=== PATIENT | male | born 1950 | race Two or more races ===

== ENCOUNTER 2016-12-22 15:31 | Inpatient (IN) | payer OTHER ==
[~2016-12-22] VITALS: Ht 170.2 cm; Wt 75.3 kg
--- NOTE | 2016-12-22 18:43 | NUR ---
PT STATING SORETHROAT FOR 3 DAYS WITH INTERMITTENT FEVER. PT IS ALERT AND ORIENTED, FAMILY AT BEDSIDE AND BREATHING IS UNLABORED AND EVEN.
[2016-12-22 20:02] LABS: PLATELET COUNT 312 x10^3mcL (130-400); RED CELL DISTRIBUTION WIDTH 13.6 % (11.5-14.5)
[2016-12-22 20:05] LABS: CALCIUM 9.3 mg/dL (8.5-10.1); CARBON DIOXIDE 15.6 mmol/L (21-32); CREATININE SERUM 1.6 mg/dL (0.7-1.3); POTASSIUM SERUM 4.9 mmol/L (3.5-5.1)
[2016-12-22 20:10] LABS: ALBUMIN 3.5 g/dL (3.4-5.0); BILIRUBIN TOTAL 0.9 mg/dL (0.20-1.00)
[2016-12-22 20:11] LABS: TOTAL PROTEIN, SERUM 8.6 g/dL (6.4-8.2)
--- NOTE | 2016-12-22 20:15 | NUR ---
PT SITTING IN BED, IN POSITION OF COMFORT. C/O PAIN 10/10 TO THROAT. RESPIRATIONS EVEN AND UNLABORED. NO ACUTE DISTRESS NOTED. BED IN LOW POSITION. CALL LIGHT WITHIN REACH.
--- NOTE | 2016-12-22 20:29 | NUR ---
GLIDESCOPE, DIFFICULT INTUBATION TRAY, CRIC TRAY, & INTUBATION KIT ALL @ BEDSIDE WELL REGULAR ADULT CRASH CART. SALINE LOCK PLACED.
--- NOTE | 2016-12-22 20:31 | NUR ---
DR. TUCKER, ANESTHESIA HERE CONSULTING W/ DR. WILLOUGHBY.
[2016-12-22 20:39] LABS: BAND NEUTROPHIL 10 % (0-10); METAMYELOCTE 3 % (0-2); MONOCYTE 8 % (0-7); SEGMENTED NEUTROPHILS 73 % (37-75)
[2016-12-22 20:41] LABS: PLATELET MORPHOLOGY FEW LARGE PLATELETS; rbc morphology (normal/abnorm) NORMAL (NORMAL)
[2016-12-22 21:09] VITALS: BP 129/74
--- NOTE | 2016-12-22 21:09 | NUR ---
PT MOVING ARMS AND ATTEMPTING TO BITE ON ETT. ADJUSTED PROPOFOL DRIP TO 10MCG/KG/MIN.
--- NOTE | 2016-12-22 21:35 | NUR ---
ET READJUSTED TO 23CM PER BY RT PER DR. BURTON.
--- NOTE | 2016-12-22 22:17 | NUR ---
REPORT GIVEN TO IVETTE NICE.
--- NOTE | 2016-12-22 22:18 | NUR ---
REPORT RECEIVED FROM ARLET CANTU. ALL QUESTIONS AND CONCERNS ADDRESSED.
[2016-12-22 22:36] LABS: microscopic required? YES; urine erythrocyte 2+ (NEGATIVE)
--- NOTE | 2016-12-22 22:48 | NUR ---
BILAT NARES SWABBED FOR MRSA & INFLUENZA TESTING.
--- NOTE | 2016-12-22 22:52 | NUR ---
UNABLE TO COMPLETE MED RED. FAMILY ONLY KNOWS NAMES (ON TRIAGE) BUT NOT DOSAGES OR FREQUENCIES. THEY STATE THEY ALREADY SPOKE TO RESIDENT ABOUT IT & HE TOLD THEM THAT THEY CAN BRING THAT INFO TOMORROW.
--- NOTE | 2016-12-22 23:16 | NUR ---
TRANSFERRED PT TO ICU WITHOUT INCIDENT. WILL MONITOR.
[2016-12-22 23:28] LABS: T3 TOTAL 0.67 ng/mL
[2016-12-22 23:30] LABS: FREE T4 1.74 ng/dL (0.76-1.46); FREE THYROXINE INDEX 3.9 ug/dL (1.4-4.5); T4(THYROXINE) 10.1 ug/dL (4.7-13.3)
--- NOTE | 2016-12-22 23:38 | NUR ---
PT TRANSFERED TO BED WITHOUT INCIDENT. PT IS SEDATED WITH PROPOFOL 10 MCG/KG/MIN. PT IS 2 PER MRSS. PT PLACED ON COIL ASSEMBLER, HR 96, NIBP 142/78, RESP 16, SPO2 100 %. PT IS ON VENT, SETTINGS ARE AC MODE, PEEP 5, FIO2 40%, RATE 14, VT 500. PT HAS 7.5 MM ETT THAT IS 23 CM AT THE LIP LINE. PT IS TOLERATING VENT WELL. LUNG SOUNDS ARE CTA AND DIM LEFT LUNG AND COURSE RHONCHI TO RIGHT LUNG. PT IS NOT ON RESTRAINTS AT THIS TIME. PT IS ABLE TO FOLLOW COMMANDS AND ANSWER QUESTIONS WITH HEAD NODS AND SHAKES ALONG WITH HAND GESTURES. PT HAS SANTANA CATH DRAINING CLEAR YELLOW URINE TO GRAVITY. PT HAS 3 IV ACCESS PORTS THAT ARE ALL PATENT. CENTRAL LINE IS TO BE PLACED SHORTLY, ALL SUPPLIES ARE AT BEDSIDE. PT IS IN POC AND RESTING AT THIS TIME. BEDRAILS ARE UP AND CALL LIGHT IS WITHIN REACH. WILL CONTINUE TO MONITOR CLOSELY.
--- NOTE | 2016-12-22 23:56 | NUR ---
FLUIDS ARE FINISHED AT THIS TIME, NIBP IS 143/78, HR 96, SPO2 100%. PT IS RESTING AT THIS TIME. WILL CONTINUE TO MONITOR CLOSELY.
[2016-12-23] VITALS (19 sets, daily range): BP systolic 104–143; BP diastolic 59–82
[2016-12-23 04:49] LABS: BASOPHIL % 0 % (0-2); PLATELET COUNT 277 x10^3mcL (130-400); RED CELL DISTRIBUTION WIDTH 13.7 % (11.5-14.5)
[2016-12-23 05:01] LABS: CALCIUM 8.4 mg/dL (8.5-10.1); CARBON DIOXIDE 15.3 mmol/L (21-32); CREATININE SERUM 1.3 mg/dL (0.7-1.3); PHOSPHOROUS 3.7 mg/dL (2.5-4.9); POTASSIUM SERUM 4.8 mmol/L (3.5-5.1)
--- NOTE | 2016-12-23 05:10 | NUR ---
0455: DR DE LA FUENTE AND ULTRASOUND AT BEDSIDE TO INSERT CENTRAL LINE. 0510: XRAY AT BEDSIDE TO GET CHEST XRAY TO CHECK FOR PLACEMENT.
--- NOTE | 2016-12-23 07:10 | NUR ---
REPORT RECEIVED FROM NOC SHIFT RN. UPDATES PROVIDED, ALL QUESTIONS ANSWERED ALL CONCERNS ADDRESSED. WILL ASSESS PATIENT SHORTLY.
--- NOTE | 2016-12-23 07:45 | NUR ---
PATIENT ASSESSED AT THIS TIME. PATIENT SHOWS NO SIGNS OF DISTRESS. THE VITAL SIGNS ARE FOLLOWS: TEMP 98.1, HR 91, O2 100, BP 124/70 (88) AND RATE 21. PATIENT IS ORALLY
--- NOTE | 2016-12-23 07:45 | NUR ---
X-RAY ORDERED AT THIS TIME TO VERIFY PLACEMENT OF NGT. WILL CONTINUE TO MONITOR PATIENT.
--- NOTE | 2016-12-23 07:55 | NUR ---
X-RAY BEDSIDE WITH PATIENT AT THIS TIME FOR KUB. WILL CONTINUE TO MONITOR PATIENT.
--- NOTE | 2016-12-23 08:15 | NUR ---
RT BEDSIDE WITH PATIENT AT THIS TIME FOR BREATHING TREATMENT. WILL CONTINUE TO MONITOR PATIENT.
--- NOTE | 2016-12-23 08:30 | NUR ---
ECHO FOR BIALTERAL LOWER EXTREMITIES BEING CONDUCTED AT THIS TIME. WILL CONTINUE TO MONITOR PATIENT.
--- NOTE | 2016-12-23 08:45 | NUR ---
DR. LOVELL BEDSIDE WITH PATIENT AT THIS TIME. UPDATES PROVIDED, NEW ORDERS TO BE RECIEVED SHORTLY.
--- NOTE | 2016-12-23 08:50 | NUR ---
CVP LINE PLACED AND ZEROED AT THIS TIME. CURRENT CVP READING IS 8. WILL CONTINUE TO MONITOR PATIENT.
--- NOTE | 2016-12-23 09:00 | NUR ---
ECHO BEDSIDE WITH PATIENT AT THIS TIME. WILL CONTINUE TO MONITOR PATIENT.
--- NOTE | 2016-12-23 09:20 | NUR ---
DR. DANIELLE, RESIDENTS, STATE ASSESSED PROPERTIES DIRECTOR AND PRIMARY RN AT BEDSIDE FOR MORNING ROUNDS. PLAN OF CARE DISCUSSED. WILL CONT TO MONITOR.
--- NOTE | 2016-12-23 11:22 | NUR ---
Initial Nutrition Assessment Dx: Possible Sepsis 2/2 possible Epiglottitis PMHx: Diabetes Mellitus, HTN PSHx: None Labs: BG 320H, BUN 26H, Alb 3.5, A1C 9.1H, WBC 21.5H, H/H 12/36L, PO2 298.9H, Tmax 37.5C, FiO2 25, MV 11.4, P:F= 1196 Meds: colace, Diprivian at 4.08cc/ru=[id number], humulin R, lactinex, morphine, oscal w/ vitamin D, pepcid, NS, solu-medrol, zofran Current Diet Order: no active diet order (12/22) PO Intakes: none recorded (12/22-12/23) Ht: 170.18cm,67". Wt: 151lbs, 68.521kg. BMI: 23.7 kg/m2 (Normal) IBW:148 lb,67.2 kg. %IBW: 102%. UBW: unable to obtain Age: 66 Y/O M Food Allergies: NKFA Skin: intact. Raymundo:16 Edema: None noted GI: soft, flat abd w/ active bowel sounds. Last BM:1 formed (12/22) RN Trigger: Admitted w/ potential risk dx; Poor PO intake > 3 days Pt admitted w/ Possible Sepsis 2/2 possible Epiglottitis, seen at bedside, +intubated, +ETT to vent support, +NGT to R nare in place, no family present, pt was having a cardio ECHO done, observed no TF hanging, noticed Diprivan infusing via IV at 4.08cc/nh=464wphhi, spoke to RN, reports the pt just received orders by Dr. Blackwell for TF of [facility], will initiate the TF at lunch time, no BM during shift- denies other GI issues, is requiring sedation via Diprivan. Problem with: N: None. V: None. D: none. C: None. Problem with: Chewing: None. Swallowing: None. Current Appetite: N/A pt is intubated Recent Weight Change: unable to assess. % Weight Change: unable to assess Vitamin/Supplement Use: unable to obtain Diet at Home: unable to obtain Physical Activity: ambulatory, lives w/ Education: unable to obtain Estimated Nutritional Needs Based on CBW 151 lb, 68.5kg Energy: 1770 vs 5031-3207 kcal/day ( PSU 2003b vs 30-35 kcal/kg for Sepsis, Vent Support) Protein: 82-103 g/day (1.2-1.5 g/kg for Sepsis, Vent Support) Fluid: 0353-2062 ml/day (1 ml/kcal for Sepsis, Vent Support) or per MD Nutrition Diagnosis 1. Inadequate protein/energy intake related to no active diet order as evidenced by pt s/p intubation and no TF initated as of yet Intervention 1. When medically feasible, initiate [facility] Pul[facility] via NGT at 30cc/hr and advance by 10cc q4hr to goal rate of 50cc/hr to provide 1800kcals, 82g protein, 938cc free H2O. Free H2O Flush of 210cc q6hr (total free H2O 1778cc) or per MD. This nutrition support regimen including the Diprivian at 4.08cc/yn=370cgbbf, provides 1908kcals and 82g protein. 2. Adjust insulin regimen PRN (Bmg/dL) Monitor/Evaluate Goal: TF in place at F/U; TF meeting >/=50% of needs w/ tolerance Monitor: TF intakes/tolerance, labs, skin integrity, GI function, wt F/U in 2-3 days as HIGH risk (12/25-12/26)
--- NOTE | 2016-12-23 11:22 | NUR ---
1. When medically feasible, initiate [facility] Pul[facility] via NGT at 30cc/hr and advance by 10cc q4hr to goal rate of 50cc/hr to provide 1800kcals, 82g protein, 938cc free H2O. Free H2O Flush of 210cc q6hr (total free H2O 1778cc) or per MD. This nutrition support regimen including the Diprivian at 4.08cc/ql=863detiy, provides 1908kcals and 82g protein. 2. Adjust insulin regimen PRN (Bmg/dL)
[2016-12-23] MEDS ORDERED: ASPIRIN LOW DOS81 MG PO (11:51)
[2016-12-23] MEDS ORDERED: GLUCOTROL10 MG PO (11:53)
[2016-12-23] MEDS ORDERED: METFORMIN HCL500 MG PO (11:54)
[2016-12-23] MEDS ORDERED: LISINOPRIL10 MG PO (11:54)
--- NOTE | 2016-12-23 16:00 | NUR ---
TUBE FEEDING INITIATED AT THIS TIME AT A RATE OF 10ML/HOUR WITH 50 ML FWF Q6 HOURS. WILL CONTINUE TO MONITOR.
--- NOTE | 2016-12-23 17:05 | NUR ---
REPORT GIVEN TO ONCOMING RN CHANG. UPDATES PROVIDED ALL QUESTIONS ANSWERED. WILL ENDORSE CARE TO ONCOMING RN.
--- NOTE | 2016-12-23 18:00 | NUR ---
DR. DE LA FUENTE BEDSIDE WITH PATIENT AT THIS TIME. UPDATES PROVIDED NO NEW ORDERS RECEIVED. WILL CONTINUE TO MONITOR PATIENT.
--- NOTE | 2016-12-23 18:00 | NUR ---
TUBE FEEDING ADVANCED TO 20ML/HOUR AT THIS TIME. RESIDUAL OF 10 ML REMOVED AND REPLACED. WILL CONTINUE TO MONITOR PATIENT.
--- NOTE | 2016-12-23 20:09 | NUR ---
FAMILY AT BEDSIDE.
--- NOTE | 2016-12-23 21:00 | NUR ---
DR. DE LA FUENTE SPOKEN TOO ABOUT CLARIFICATION IN NUTREN PULMONARY ORDER. NEW ORDERS PROVIDED AT THIS TIME.
[2016-12-24] VITALS (17 sets, daily range): BP systolic 97–109; BP diastolic 50–62
[2016-12-24 05:46] LABS: ALBUMIN 2.1 g/dL (3.4-5.0); CALCIUM 8.2 mg/dL (8.5-10.1); CARBON DIOXIDE 18.4 mmol/L (21-32); CHLORIDE SERUM 107 mmol/L (98-107); CREATININE SERUM 1.1 mg/dL (0.7-1.3); GFR1 > 60 mL/min; GLUCOSE SERUM 341 mg/dL (74-106); MAGNESIUM 2.6 mg/dL (1.8-2.4); PHOSPHOROUS 2.7 mg/dL (2.5-4.9); PLATELET COUNT 245 x10^3mcL (130-400); POTASSIUM SERUM 4.3 mmol/L (3.5-5.1); RED CELL DISTRIBUTION WIDTH 13.7 % (11.5-14.5); SODIUM SERUM 138 mmol/L (136-145)
[2016-12-24 05:47] LABS: BASOPHIL % 0 % (0-2)
--- NOTE | 2016-12-24 07:00 | NUR ---
RECEIVED REPORT FROM ARLET DOWNING, ALL QUESTIONS ANNSWEED, WILL TAKE OVER CARE
--- NOTE | 2016-12-24 08:50 | NUR ---
DR LOVELL AT BEDSIDE, ORDERED HOLD PROPOFOL, AND PLACE PT ON CPAP, WILL CONTINUE TO MONITOR.
--- NOTE | 2016-12-24 09:00 | NUR ---
RT BAZAN AT BEDSIDE, PT PLACED ON CPAP /, WILL CONTINUE TO MONITOR.
--- NOTE | 2016-12-24 10:12 | NUR ---
TUBE FEEDING PUT ON HOLD FOR CPAP TRIAL.
--- NOTE | 2016-12-24 11:45 | NUR ---
PT IS RESTING COMFORTABLY IN BED WITH AT BEDSIDE. AOX4. PERRLA, 2MM/BRISK. RIGHT NARE NGT IS INTACT, SECURED, AND CLAMPED FOR CPAP TRIAL. ETT IS INTACT AND SECURED, 23 @ LL. ETT TO VENT, CPAP: RATE 14, PSV 10, PEEP 5, FOI2 25%. BREATHING IS EVEN AND UNLABORED, RR = 15, SPO2 = 100%. LUNG SOUNDS ARE CLEAR BILATERALLY. SCANT AMOUNT OF PINK TINGED SECRETIONS FROM DEEP SUCTION. PULSES ARE MODERATE X4, CAP REFILL < 3 S. SKIN IS WARM AND DIETZ. NSR, HR = 82, BP = 105/61M MAP = 76, CVP = 17. S1 S2 HEART SOUNDS AUSCULTATED. ABD IS SOFT AND NONTENDER. BOWEL SOUNDS ACTIVE X4Q. SANTANA INTACT AND DRAINING VIA GRAVITY. CLEAR YELLOW URINE, ADEQUATE OUTPUT. PT DENIES PAIN AT THIS TIME. NO DISTRESS NOTED. REPOSITIONED Q2H, ORAL CARE DONE. HOB ELEVATED, BED LOW, SIDE RAILS UPX3, CALL LIGHT IN REACH. WILL CONTINUE TO MONITOR.
--- NOTE | 2016-12-24 13:16 | NUR ---
FAMILY IS AT BEDSIDE AT THIS TIME. ADDRESSED QUESTIONS AND CONCERNS.
--- NOTE | 2016-12-24 15:45 | NUR ---
PT IS RESTING COMFORTABLY IN BED. PT IS INTUBATED AND NOT ON SEDATION. AOX4. ETT INTACT AND SECURED, 23 @ LL. ETT TO VENT, CPAP: RATE 14, PSV 10, PEEP 5, FIO2 25%. BREATHING IS EVEN AND UNLABORED, RR = 15, SPO2 = 100%. LUNG SOUNDS CLEAR BILATERALLY. PULSES ARE STRONG X4. CAP REFILL < 3 S. SKIN IS WARM AND DIETZ. S1 S2 HEART SOUNDS AUSCULTATED. NSR, HR = 73, BP = 104/55, MAP = 74, CVP = 13. OBD IS SOFT AND FLAT, BOWEL SOUNDS ACTIVE X4. MINIMAL GASTRIC RESIDUAL. SANTANA INTACT AND DRAINING VIA GRAVITY. URINE IS CLEAR AND YELLOW, ADEQUATE OUTPUT. RESPOSITIONED Q2H, ORAL CARE DONE. HOB ELEVATED, BED LOW, SIDE RAILS UP X3, CALL LIGHT IN REACH, HEELS OFFLOADED, SCD ON. PT DENIES PAIN AT THIS TIME. NO DISTRESS NOTED. WILL CONTINUE TO MONITOR.
--- NOTE | 2016-12-24 18:09 | NUR ---
PT PUT BACK ON AC MODE: RATE 14, TV 550, PEEP 5, FIO2 25%. RESTARTED PROPOFOL @ 10 MCG/KG/MIN TO KEEP PT COMFORTABLE.
--- NOTE | 2016-12-24 18:24 | NUR ---
TUBE FEEDING RESTARTED @ 30 CC/HR, 210 FWF Q6H.
--- NOTE | 2016-12-24 19:02 | NUR ---
REPORT GIVEN TO CHANG RN. ALL CARE ENDORSED, QUESTIONS ANSWERED.
--- NOTE | 2016-12-24 19:10 | NUR ---
RECEIVED SHIFT REPORT FROM ARLET BATES AT BEDSIDE. ALL QUESTIONS AND CONCERNS ADDRESSED.
--- NOTE | 2016-12-24 22:26 | NUR ---
DR. DE LA FUENTE AT BEDSIDE, PT UPDATES PROVIDED. NO NEW ORDERS AT THIS TIME.
[2016-12-25] VITALS (12 sets, daily range): BP systolic 94–126; BP diastolic 52–100
--- NOTE | 2016-12-25 05:13 | NUR ---
LAB AT BEDSIDE
[2016-12-25 05:47] LABS: PLATELET COUNT 240 x10^3mcL (130-400); RED CELL DISTRIBUTION WIDTH 14.1 % (11.5-14.5)
[2016-12-25 05:51] LABS: CALCIUM 8.1 mg/dL (8.5-10.1); CHLORIDE SERUM 110 mmol/L (98-107); CREATININE SERUM 0.9 mg/dL (0.7-1.3); GFR1 > 60 mL/min; GLUCOSE SERUM 295 mg/dL (74-106); MAGNESIUM 2.7 mg/dL (1.8-2.4); PHOSPHOROUS 2.6 mg/dL (2.5-4.9); POTASSIUM SERUM 4.3 mmol/L (3.5-5.1); SODIUM SERUM 140 mmol/L (136-145)
[2016-12-25 06:22] LABS: BAND NEUTROPHIL 12 % (0-10); METAMYELOCTE 2 % (0-2); MYELOCYTE 1 % (0-2); SEGMENTED NEUTROPHILS 79 % (37-75); ovalocyte/elliptocyte 1+; rbc morphology (normal/abnorm) ABNORMAL (NORMAL)
[2016-12-25 06:23] LABS: PLATELET MORPHOLOGY LARGE PLATELET SEEN
--- NOTE | 2016-12-25 07:18 | NUR ---
RECEIVED REPORT FROM CHANG NICE.
--- NOTE | 2016-12-25 07:24 | NUR ---
PATIENT TO BE PLACED ON CPAP THIS MORNING. PROPOFOL TITRATED OFF AT THIS TIME.
--- NOTE | 2016-12-25 07:40 | NUR ---
PT IS RESTING COMFORTABLY IN BED. PROPOFOL WAS SUSPENDED FOR CPAP TRIAL TODAY. PT IS AOX4. PERRLA, 2MM/BRISK. SIZE 7.5 ETT INTACT AND SECURED, 23 @ LL. ETT TO VENT, AC MODE: RAET 14, TV 550, PEEP 5, FIOW 25%. BREATHING IS EVEN AND UNLABORED, RR = 71, SPO2 = 100%. LUNG SOUNDS ARE CLEAR BILATERALLY. PULSES ARE STRONG X4, CAP REFILL < 3 S. SKIN IS WARM AND PINK. S1 S2 HEART SOUNDS AUSCULTATED. NSR, HR = 71, BP = 126/100, MAP = 110, CVP = 13. ABD IS SOFT AND FLAT, BOWEL SOUNDS ARE ACTIVE X4Q. SANTANA INTACT AND DRAINING VIA GRAVITY, CLEAR YELLOW URINE, ADEQUATE OUTPUT. SKIN IS INTACT. R IJ INTACT AND INFUSING NS @ 75 CC/HR. RIGHT NARE NGT INTACT AND SECURED, INFUSING NUTREN PULM @ 30 CC/HR, 210 CC FWF Q6H. MINIMAL GASTRIC RESIDUAL, TOLERATING WELL. PT DENIES PAIN AT THIS TIME. NO DISTRESS NOTED. REPOSITIONED PT Q2H, ORAL CARE DONE. HOB ELEVATED, BED LOW, SIDE RAILS UP X3, CALL LIGHT IN REACH. WILL CONTINUE TO MONITOR.
--- NOTE | 2016-12-25 08:00 | NUR ---
HORTENSIA CATHERINE PUT PT ON CPAP MODE. TUBE FEEDING SUSPENDED AT THIS TIME. WILL CONTINUE TO MONITOR.
--- NOTE | 2016-12-25 08:20 | NUR ---
CPAP PSV 10, PEEP 5. BREATHING IS EVEN AND UNLABORED, RR = 15, SPO2 = 100%.
--- NOTE | 2016-12-25 08:38 | NUR ---
DR. HODGE AND DR. LOVELL ON UNIT MAKING ROUNDS.
--- NOTE | 2016-12-25 08:38 | NUR ---
DR LOVELL AND HORTENSIA RT AT BEDSIDE TO SEE IF PT IS READY FOR EXTUBATION TODAY. PLAN TO EXTUBATED DELAYED TILL TOMORROW, UNLESS PT MAKING SIGNIFICANT PROGRESS TODAY.
--- NOTE | 2016-12-25 09:25 | NUR ---
HORTENSIA RT AT BEDSIDE WITH PT DOING WEANING EXERCISES.
--- NOTE | 2016-12-25 09:55 | NUR ---
AT BEDSIDE AND GIVES ORDER FOR RT HORTENSIA TO EXTUBATE. ALSO WANTS 1 TIME DOSE 20 LASIX IVP GIVEN. WILL CONTINUE TO MONITOR. PT EXTUBATED AT 0954, PRIMARY RN PAULO AT BEDSIDE. NC 2L IN PLACE AT THIS TIME.
--- NOTE | 2016-12-25 10:11 | NUR ---
HORTENSIA RT PUTTING PT ON COOLING AEROSOL @ 30% FIO2.
--- NOTE | 2016-12-25 11:40 | NUR ---
PT IS RESTING COMFORTABLY IN BED. AOX4. PT IS ON 30% FIO2 ON COOLING AEROSOL. BREATHING IS EVEN AND UNLABORED. LUNG SOUNDS ARE CLEAR BILATERALLY. PULSES ARE STRONG X4. CAP REFILL < 3 S. SKIN IS WARM AND DIETZ. S1 S2 HEART SOUNDS AUSCULTATED. RIGHT NARE NGT INFUSING NUTREN PULM @ 30 CC/HR W/E 210 CC FWF Q6H, TOLERATING WELL. MINIMAL GASTRIC RESIDUAL. ABD IS SOFT AND FLAT, BOWEL SOUNDS ACTIVE X4Q. NO BM AT THIS TIME. SANTANA INTACT AND DRAINING VIA GRAVITY. CLEAR YELLOW URINE, ADEQUATE OUTPUT. R IJ INFUSING NS @ 75 CC/HR. HOB ELEVATED, BED LOW, SIDE RAILS UP X3, CALL LIGHT IN REACH. PT DENIES PAIN AT THIS TIME, NO DISTRESS NOTED. WILL CONTINUE TO MONITOR.
--- NOTE | 2016-12-25 12:26 | NUR ---
HORTENSIA CATHERINE AT BEDSIDE EDUCATING PT ON INSP SPIROMETER USAGE.
--- NOTE | 2016-12-25 12:48 | NUR ---
PT COMPLAINING OF MODERATE HEADACHE. GIVING PRN TYLENOL, WILL EVALUATE EFFECTIVENESS OF MEDICATION AND READJUST INTERVENTIONS ACCORDINGLY.
--- NOTE | 2016-12-25 13:21 | NUR ---
GAVE PT FULL BED BATH AND SHAMPOO. PT ASSISTS IN CARE.
--- NOTE | 2016-12-25 14:44 | NUR ---
DR. LYNN ON UNIT. UPDATED ON RECENT URINE CULTURE RESULT. AWAITING ORDERS.
--- NOTE | 2016-12-25 15:41 | NUR ---
PT IS RESTING COMFORTABLY IN BED. AOX4, VERBAL. PERRLA, 2MM/BRISK. PT ON 2L NC, BREATHING EVEN AND UNLABORED, RR = 16, SPO2 = 100%. LUNG SOUNDS ARE CLEAR BILATERALLY. PULSES ARE STRONG X4. CAP REFILL < 3 S. SKIN IS WARM AND DIETZ. NO EDEMA NOTED. RIGHT NARE NGT INTACT, SECURED, AND INFUSING NUTREN PULM @ 30 CC/HR, 210 CC FWF Q6H, TOLERATING WELL. ABD IS SOFT AND FLAT. BOWEL SOUNDS ACTIVE X4Q. MINIMAL GASTRIC RESIDUALS. SANTANA INTACT AND DRAINING VIA GRAVITY, CLEAR YELLOW URINE, ADEQUATE OUTPUT. PT DENIES PAIN AT THIS TIME, NO DISTRESS NOTED. SCD ON, PT RECEIVING HEPARIN SQ AND PROTONIX IV. HOB ELEVATED, BED LOW, SIDE RAILS UP X3, CALL LIGHT IN REACH. WILL CONTINUE TO MONITOR.
--- NOTE | 2016-12-25 16:30 | NUR ---
PT ON ROOM AIR AT THIS TIME. TOLERATING WELL.
--- NOTE | 2016-12-25 16:50 | NUR ---
PATIENT'S NGT TO RIGHT NARE DISLODGED WHILE PROVIDING PATIENT CARE. NOTIFIED DR LYNN TO ORDER BEDSIDE SWALLOW SCREEN.
--- NOTE | 2016-12-25 17:02 | NUR ---
BEDSIDE SWALLOW SCREEN PERFORMED. PT ABLE TO TOLERATE PUDDING, JELLO, APPLESAUCE, AND THIN LIQUIDS WELL.
--- NOTE | 2016-12-25 17:03 | NUR ---
NGT REMOVED. PT TOLERATED WELL.
--- NOTE | 2016-12-25 18:59 | NUR ---
DR. DE LA FUENTE ON UNIT UPDATED ON PT STATUS. NOW AT PT BEDSIDE.
--- NOTE | 2016-12-25 19:11 | NUR ---
REPORT GIVEN TO GONZALO NICE. ALL CARE ENDORSED, QUESTIONS ANSWERED.
--- NOTE | 2016-12-25 19:15 | NUR ---
REPORT TAKEN FRON ARLET BATES. ALL CARE ENDORSSED
--- NOTE | 2016-12-25 19:30 | NUR ---
PT WASM EXTUBATED TODAY AND PT IS A/O X4, CLEAR SPEECH, FOLLLOWS COMAND. DENIES PAIN AT TIME. LUNG SOUND CLEAR BILAT ON 2 LNC AT 75ML/HR TO RIJ, ALL PORTS PATENT. BOWEL SOUND ACTIVE X4 Q, SAFETY IN PLACE. CALL LIGHT WITHIN REACH. WILL CONTINUE TO MONITOR.
--- NOTE | 2016-12-25 20:00 | NUR ---
FAMILY AT PT BEDSIDE.
--- NOTE | 2016-12-25 20:09 | NUR ---
RT AT PT DEBSIDE FOT BRETHING TREATMENT PER PROTOCOL.
--- NOTE | 2016-12-25 21:50 | NUR ---
CXR AT PT BEDSIDE COMPLETED.
--- NOTE | 2016-12-25 22:00 | NUR ---
RT AT PT BEDSIDE PER PROTOCOL.
--- NOTE | 2016-12-26 00:30 | NUR ---
PT IS SLEEPING VERBALY ARROUSSABLE. DENIES PAIN AND RESP DISTRESS. LUNG SOUND CLEAR. RA. PT SAT 98 %. BOWEL SOUND ACTIVE X4. ON FULL LIQ DIET [place] WELL. SAFETY IN PLACE. CALL LIGHT WITHIN REACH. WILL CONTINUE TO MONITOR.
--- NOTE | 2016-12-26 03:00 | NUR ---
RECHECK WITH PT. PT IS SLEEPING AT TIME. NO DISTRESS NOTED. WILL CONTINUE TO MONITOR.
[2016-12-26 04:01] VITALS: BP 119/58
--- NOTE | 2016-12-26 05:00 | NUR ---
PT REFUSED TO CHANGE HIS GOWN AND TAKE A SPONGE BATH.
[2016-12-26 05:41] LABS: BASOPHIL % 0.6 % (0-2); PLATELET COUNT 195 x10^3mcL (130-400); RED CELL DISTRIBUTION WIDTH 13.8 % (11.5-14.5)
[2016-12-26 05:47] LABS: CALCIUM 8.1 mg/dL (8.5-10.1); CARBON DIOXIDE 23.2 mmol/L (21-32); CHLORIDE SERUM 108 mmol/L (98-107); CREATININE SERUM 0.8 mg/dL (0.7-1.3); GFR1 > 60 mL/min; GLUCOSE SERUM 233 mg/dL (74-106); MAGNESIUM 2.3 mg/dL (1.8-2.4); PHOSPHOROUS 2.8 mg/dL (2.5-4.9); POTASSIUM SERUM 3.7 mmol/L (3.5-5.1); SODIUM SERUM 141 mmol/L (136-145)
--- NOTE | 2016-12-26 06:53 | NUR ---
NO S/S OF DISTRESS. PT RESTING IN BED COMFORTABLY. WILL ENDORSSE THE CARE TO DAY NURSE.
--- NOTE | 2016-12-26 07:21 | NUR ---
REPORT IVENN TO GHADA, ALL CARE ENDORSSED.
[2016-12-26 07:39] VITALS: BP 135/62
--- NOTE | 2016-12-26 08:00 | NUR ---
PT ON BED,IN NO DISTRESS,DENIES PAIN,VITALS' NOTED,MEDICAL TEAM CAME AND SAW PT,DISCUSSED PLAN OF CARE INCLUDING TO TRANSFER TO TELEMETRY UNIT THIS PM. KEPT COMFORTABLE UP ON BED,REASSURED,REINFORCE USE OF CALL LIGHT AT BEDSIDE FOR ANY ASSIST NEEDED. BEDSIDE COMMODE PROVIDED.
--- NOTE | 2016-12-26 09:00 | NUR ---
DR. DANIELLE, RESIDENTS, AND MYSELF COMPLETING BEDSIDE ROUNDS AT THIS TIME.
--- NOTE | 2016-12-26 10:00 | NUR ---
DR LOVELL CAME AND SAW PT,DISCUSSED PLAN OF CARE. TO FOLLOW UP NEW ORDERS.PT RESTING COMFORTABLY AT THIS TIME.
[2016-12-26 11:36] VITALS: Ht 170.2 cm; Wt 75.3 kg
[2016-12-26 12:00] VITALS: BP 141/75
--- NOTE | 2016-12-26 12:42 | NUR ---
Follow-up Nutrition Assessment Dx: Sepsis 2/2 ESBL E. Coli vs Epiglottitis s/p extubation (12/25/16, < 96 hours) PMHx: Diabetes Mellitus, HTN Labs: BG 233H, BUN 36H, Alb 2.1L, WBC 8.6; (12/23) PO2 298.9H, Tmax 37.5C, FiO2 25, MV 11.4, P:F= 1196; (12/22) A1C 9.1H Meds: colace, Diprivian at 4.08cc/jc=025ejbtw, humulin R, lactinex, morphine, oscal w/ vitamin D, protonix, pepcid, NS, theragran, heparin, zofran Current Diet Order: CCHO 60g (12/26-Breakfast) PO Intakes: none recorded (12/22-12/23); 90% B (12/26) I/O's: 2649/3150 (-501ml) Wt: 151lbs, 68.521g (12/23); 166lbs, 75.3kg (12/24-12/25)= up 15lbs in 2 days likely d/t fluid shifts. BMI: 23.7 kg/m2 (Normal) Skin: intact. Raymundo:16 Edema: None noted GI: active bowel sounds. Last BM:1 formed (12/22) Problem with: N: None. V: None. D: none. C: Yes x 4 days. As per doctor's progress note 12/26- Patient's O2 sat is now 100, diet will be advanced to regular, Plan is to transfer patient to floor today, with PT pending. Vitals have been stable overnight as well. No acute complications. Pt admitted w/ Sepsis 2/2 ESBL E. Coli vs Epiglottitis s/p extubation (12/25/16, < 96 hours), seen at bedside extubated w/ family present, pt reports feeling much better and consuming 90% of breakfast, C/O constipation- denies other GI issues, denies issues chewing/swallowing, denies education on DM and 2gm Na+ diet and requested education at bedside, the RD reviewed w/ pt and family on DM and 2gm Na+ diet at bedside, educational handouts given, the pt and family were highly receptive and engaged, the RD answered all questions that were presented to her. Spoke to RN, reports the pt is tolerating medi-pass well, pills do not need to be crushed. As per bed huddles (12/26)- the pt is stable to be transferred upstairs. Estimated Nutritional Needs Based on CBW 151 lb, 68.5kg-*Needs Re-assessed d/t pt s/p extubation (12/25) Energy: 3989-5178 kcal/day (25-30 kcal/kg for Sepsis) Protein: 69-82 g/day (1-1.2 g/kg for Sepsis) Fluid: 4711-8043 ml/day (25-30 ml/kg for Sepsis) or per MD Nutrition Diagnosis 1. Inadequate protein/energy intake related to no active diet order as evidenced by pt s/p intubation and no TF initated as of yet-*Resolved 2. Food and Nutrition related knowledge deficit related to no prior nutrition education on DM and 2gm Na+ diet 2/2 DM, HTN as evidenced by pt unable to state diet basics, requesting education at bedside, and A1C 9.1 Intervention 1. CCHO 60gm and 2gm Na+ diet. Make food preferences known. 2. Adjust insulin regimen PRN (Bmg/dL) 3. Adjust BM regimen PRN (no BM x 4 days) Monitor/Evaluate Previous Goal: TF in place at F/U-Was previously met; TF meeting >/=50% of needs w/ tolerance- N/A Goal: Pt meeting >/=75% of needs w/ tolerance; BM at F/U Monitor: PO intakes/tolerance, labs, skin integrity, GI function, wt F/U in 3-5 days as MODERATE risk (12/29-12/31)
--- NOTE | 2016-12-26 15:10 | NUR ---
PT JUST BEING WALKED BY PHY. THERAPIST,PT NOTED TO BE STILL MILD GEN. WEAK,PARTICULARLY ON HIS LEFT LE. PT STIL NEED FOR WALKER TO MOVE AROUND PER P.T. VITALS' NORMAL,02 SAT AT 100% IN R.A. POST AMBULATION. KEPT COMFY ON BED,CALL LIGHT PROVIDED AT BEDSIDE.
[2016-12-26 16:13] VITALS: BP 138/72
--- NOTE | 2016-12-26 18:53 | NUR ---
PT'S CONDITION STABLE,VITALS' NORMAL,DENIES PAIN,CENTRAL LINE FLUSHED AND PATENT. PT RESTING COMFORTABLY W/ RELATIVES AT BEDSIDE,AWAITING BED FROM TELEMETRY. TO BE ENDORSE TO NOC NURSE.
--- NOTE | 2016-12-26 19:15 | NUR ---
REPORT RECEIVED FROM ARLET VYAS. ALL QUESTIONS AND CONCERNS ADDRESSED.
--- NOTE | 2016-12-26 19:21 | NUR ---
PT EVAL NOTES [id number] Patient is a 66 y/o male admitted with throat pain and loss of appetite x 2 days, admitted with acute respiratory failure, intubated and now extubated. Patient lives with in 2 story house, but states stays on first floor, PLOF indep with gait w/o AD and indep with all ADL/IADLs. Prec: ICU monitoring, fall risk S: Patient cleared by RN, chart reviewed, and patient agreeable to PT POC. Denies any pain. O: Patient appears a/o, educated on PT POC/safety with mobility with good return understanding. Patient vitals monitored BP 125/73 HR 59 on RA with SpO2 99%. Bed mobility: min assist Transfers sit<>stand, bed<>chair: min/CGA Gait x 100' with FWW with CGA for safety, 2PA for assist with equip Patient demo decreased tracey, noted slight L foot drop with initial forefoot contact (reports this is chronic). Patient assisted BTB with min assist, all lines in place, call light in hand, nursing aware. A: PT eval completed. Patient presents with gen weakness s/p prolonged bedrest s/p extubation. Patient requiring overall min/CGA with all functional activity. Patient benefit from further skilled PT tx, recomm home with assist, possible FWW and HHPT. P: Patient to be seen per PT POC once daily 6x/wk x 1 wk for ther ex/activity, gait trng, and patient/fam edu. Cont with PT POC as kendall/safe. [id number], [id number]
--- NOTE | 2016-12-26 19:29 | NUR ---
REPORT GIVEN TO ARLET XAVIER. ALL QUESTIONS AND CONCERNS ADDRESSED. PT TO BE TRANSFERED JOHNATHON.
--- NOTE | 2016-12-26 20:22 | NUR ---
RECEIVED PT FROM ICU NURSE IVETTE. PT AOX4. TELE #30, SR WITH OCC. PVCS, HR61. DENIES CP/PRESSURE. PULSES STRONG, NO EDEMA NOTED. LUNG SOUNDS CLEAR, ON RA. DENIES SOB. BOWEL SOUNDS ACTIVE. MILD GENERALIZED WEAKNESS, AMBULATORY WITH ASSISTANCE. IV IN R. IJ, INTACT AND PATENT. BED IN LOWEST POSITION. CALL LIGHT WITHIN REACH. WILL CONTINUE TO MONITOR.
[2016-12-26 21:11] VITALS: BP 124/58
--- NOTE | 2016-12-27 01:29 | NUR ---
PT RESTING IN BED COMFORTABLY. RR EVEN AND UNLABORED. NO ACUTE DISTRESS NOTED. IV INTACT AND PATENT. CALL LIGHT WITHIN REACH. BED IN LOWEST POSITION. WILL CONTINUE TO MONITOR.
[2016-12-27 06:35] VITALS: BP 121/66
[2016-12-27 06:44] LABS: PLATELET COUNT 254 x10^3mcL (130-400); RED CELL DISTRIBUTION WIDTH 14.2 % (11.5-14.5)
[2016-12-27 07:03] LABS: CALCIUM 8.2 mg/dL (8.5-10.1); CARBON DIOXIDE 24.3 mmol/L (21-32); CHLORIDE SERUM 106 mmol/L (98-107); CREATININE SERUM 0.9 mg/dL (0.7-1.3); GFR1 > 60 mL/min; GLUCOSE SERUM 142 mg/dL (74-106); POTASSIUM SERUM 3.7 mmol/L (3.5-5.1); SODIUM SERUM 141 mmol/L (136-145)
[2016-12-27 08:53] LABS: ATYPICAL LYMPH 1 %; BAND NEUTROPHIL 2 % (0-10); BASOPHIL 0 % (0-2); METAMYELOCTE 1 % (0-2); MONOCYTE 8 % (0-7); MYELOCYTE 3 % (0-2); SEGMENTED NEUTROPHILS 69 % (37-75)
[2016-12-27 09:11] VITALS: BP 119/63
--- NOTE | 2016-12-27 09:44 | NUR ---
0800 PATIENT ALERT AND ORIENTED X 4 NO SIGN FO DISTRESS NO PAIN VERBALIZED, AT THIS TIME, SANTANA CATHETER IN APLCE CLEAR YELLOW URINE, RIJ INTACT RUNNING NS 30ML/HR, LEFT ARM IV SITE HEPLOCK INTACT, SKIN INTACT, CURRENTLY LYING IN BED SUPINE BED IN LOW POSITION CALL LIGHT IN APCLE SIDE RAILS UP FAMILY AT BEDSIDE
--- NOTE | 2016-12-27 12:16 | NUR ---
PATIENT ALERT AND ORIENTED X 4 NO SIGN OF DISTRESS OR SOB NO PAIN VERBALIZED AT THIS TIME, LYING IN BED SUPINE BED IN LOW POSITION CALL LIGHT IN APLCE SIDE RAILS UP WILL CONTINUE TO MONITOR
[2016-12-27 13:32] VITALS: BP 131/61
[2016-12-27] MEDS ORDERED: LEVAQUIN750 MG PO (15:19)
[2016-12-27] MEDS ORDERED: LAC PO (15:19)
[2016-12-27 15:27] VITALS: BP 131/61
--- NOTE | 2016-12-27 15:52 | NUR ---
PT NOTES TIME: [id number] TE16',TA10',GT12' S:CHART REVIEWED AND CLEARED FOR PT BY RN. PATIENT IN HIGH CAGLE POSITION RESTING WITH FAMILY AT BEDSIDE. NO PAIN EXPRESSED AT THIS TIME AND AGREEABLE TO PARTICIPATE IN THERAPY. ALL LINES INTACT, CONTACT ISOLATION OBSERVED. O:BED: SBA/CGA SUPINE<->SIT VIA LOG ROLLING WITH VC'S PROVIDED. NO DIZZINESS UPON SITTING. BP PRIOR TO OOB 126/68 HR 83 SPO2 ON RA 97%. TRANSFER: SBA/CGA SIT<->STAND WITH FWW AND REMINDERS ON PROPER BODY MECHANICS AND PACING DURING TRANSFER. GAIT: CGA FWW 15'x4 (IV POLE IN TOW AND IN ROOM PER ISOLATION). NO DIZZINESS OR INCREASED PAIN EXPRESSED/NOTED, BUT MILD FATIGUE NOTED 4/10 BASED ON ANTHONY RPE SCALE D/T INCREASED SWAYING NOTED POST GAIT. PATIENT IS UNSTEADY WITHOUT AD WITH SHORT TRIAL OF 5'x1, BUT NOTED TO BE UNSTEADY, ENCOURAGED CONTINUED FWW USE. TE: SEATED KNEE EXT/FLEX WITH ANKLE DF/PF, SEATED AND STANDING MARCHES, SHOULDER SHRUGS/CIRCLES, SCAPULAR RETRACTION/PROTRACTION WITH EMPHASIS ON POSTURAL AWARENESS, GLUTEAL SETS FOR IMPROVE CIRCULATION. (ALL TOLERATED WITH SHORT REST BREAKS). PATIENT ENCOURAGED CONTINUED FWW USE TO STEADILY IMPROVE STABILITY AND SAFETY DURING TRANSFERS/GAIT, PATIENT VERBALIZED UNDERSTANDING. PATIENT EDUCATED ON ENERGY CONSERVATION, PACING, SAFETY WITH FWW, AND HEP WITH GOOD FOLLOW THRU. PATIENT AND FAMILY COOPERATIVE AND APPRECIATIVE OF PT CARE, RN MADE AWARE. P:CONT WITH POC, PROGRESS DISCUSSED WITH PRIMARY PT.
--- NOTE | 2016-12-27 16:26 | NUR ---
PATIETN ALERT AND ORIENTED X 4 NO SIGN OF DISTRESS OR SOB NO PAIN VERBALIZED, TOOK OUT SANTANA CATHETER NO COMPLICATION URINE OUTPUT 400ML CLEAR YELLOW URINE, IV SITE RIGHT AND LEFT FOREARM TAKEN OUT NO COMPLICATIONS DRESSING IN [place], [facility] TAKEN OUT PRESSURE HELD WITH GAUZE FOR 10 MINUTES AND DRESSING PUT ON SITE NO BLEEDING, PATIENT SKIN INTACT, PATIENT DRESSED, PAPER WORK SIGNED FOR DISCHARGE DISCHARGE PAPERS PRESCRIPTION AND INSTRUCTIONS GIVEN TO PATIENT, PATIENT SITTING IN BED LOW POSITION CALL LIGHT IN APCLE SIDE RAILS UP FAMILY AT BED SIDE
--- NOTE | 2016-12-27 16:53 | NUR ---
PATIENT LEFT VIA WHEELCHAIR TO PRIVATE VEHICLE WITH FAMILY NO COMPLICATIONS VITALS WNL, NO PAIN VERBALIED, DISCHARGE PAPERS AND ALL BELONGINGS WITH PATIENT
== END 2016-12-27 17:00 | disposition home or self-care (01) | DRG 871 ==
LOC: ED 15:31 → IC 21:26 → DU 12-26 20:00
PROVIDERS: Emergency Medicine; Family Medicine; ADMIT Family Medicine
PROC: 5A1945Z Respiratory Ventilation, 24-96 Consecutive Hours (ICD-10-PCS; principal; 2016-12-22)
PROC: 0BH17EZ Insertion of Endotracheal Airway into Trachea, Via Natural or Artificial Opening (ICD-10-PCS; 2016-12-22)
PROC: 05HM33Z Insertion of Infusion Device into Right Internal Jugular Vein, Percutaneous Approach (ICD-10-PCS; 2016-12-23)
PROC: B543ZZA Ultrasonography of Right Jugular Veins, Guidance (ICD-10-PCS; 2016-12-23)
DX: A41.51 Sepsis due to Escherichia coli [E. coli] (principal); N17.0 Acute kidney failure with tubular necrosis; J96.00 Acute respiratory failure, unspecified whether with hypoxia or hypercapnia; E43 Unspecified severe protein-calorie malnutrition; E87.1 Hypo-osmolality and hyponatremia; J05.10 Acute epiglottitis without obstruction; D68.69 Other thrombophilia; N39.0 Urinary tract infection, site not specified; R65.20 Severe sepsis without septic shock; E83.51 Hypocalcemia; R80.8 Other proteinuria; Z79.82 Long term (current) use of aspirin; Z68.23 Body mass index [BMI] 23.0-23.9, adult; E11.65 Type 2 diabetes mellitus with hyperglycemia; Z79.84 Long term (current) use of oral hypoglycemic drugs
CPT/HCPCS: 31500; 36556; 36600; 82962; 83880; 84439; 87804; 94150; 97110-GP; 97116-GP; 97530-GP; A4628; C9113; J0330; J0456; J0696; J1100; J1642; J1644; J1815; J1940; J1956; J2250; J2270; J2704; J2920; J3010; J7030; J7040; J7620; J7633; Q0092